=== PATIENT | male | born 1940 | race Caucasian/White ===

== ENCOUNTER → 2016-12-06 | Outpatient (CLI) | payer MEDICARE, BC ==
[~2016-12-06] VITALS: Ht 170.2 cm; Wt 108.7 kg
[~2016-12-06] MED LIST: AMOX500C PO; B-COINJ SQ/IV; CHOL50008 PO; COLE1TAB2 PO; FENO160T PO; INSULIN HUMAN REGULAR 1,000 UNITS/10 ML VIAL SQ PRN; LACTATED RINGER'S 1000 ML IV SCH; LEVO.05 PO; LEXA10TA PO; LOSA100T PO; MAGN250T10 PO; METH2.5T PO; METOPROLOL TARTRATE 25 MG TAB PO PRN; PROPOFOL 200 MG/20 ML AMP IV ONE; SODIUM CHLORID 0.9% 500 ML IV SCH; VEDO1INJ
[2016-12-06 11:14] VITALS: BP 152/84; PULSE 63; RESP 20; TEMP 97.7; O2SAT 96
[2016-12-06 13:23] VITALS: TEMP 97.6
[2016-12-06 13:41] VITALS: BP 139/60; PULSE 59; RESP 16; O2SAT 96
--- NOTE | 2016-12-06 19:32 | EKG ---
Date Performed: 12/06/2016 Time Performed: 11:07:39 PTAGE: 76 years EKG: Sinus rhythm NORMAL ECG PREVIOUS TRACING : 03/06/2013 09.35 Compared to prior tracing no significant change DOCTOR: Tania Rodriguez Interpretating Date/Time 12/06/2016 19:31:02
--- NOTE | 2016-12-12 18:47 | MR ---
cc: TWIN DAVIS HARRY MD 1940 DATE OF PROCEDURE 12/06/16 PROCEDURE Colonoscopy with biopsies. PERFORMED BY Dr. Ben Yap. The patient is an outpatient. INDICATIONS FOR PROCEDURE Crohn's disease. He has had this since 1993. He is status post ileocecal resection and he has had a colonic anastomosis as well. Symptoms are under control with a combination of Entyvio and methotrexate. He has been receiving Entyvio since the summer. He had inflammatory changes at the ileocolonic anastomosis with a polypoid lesion that was resected. This showed inflammation with dysplasia versus inflammatory atypia. He returns now for evaluation of this region and to see about dilating the anastomotic stricture. MEDICATIONS Sedation per anesthesiology INSTRUMENT Pentax video pediatric colonoscope. PROCEDURE IN DETAIL After obtaining written informed consent, the patient was placed in the left lateral decubitus position. Adequate sedation was administered. A digital rectal examination was performed. No gross lesions were noted. The colonoscope was placed into the anus and advanced through a colonic anastomosis that was widely patent at [address] the ileocolonic anastomosis. Anastomosis was rather stenotic and did not allow insertion of a pediatric colonoscope. There was erythema with some shallow ulcerations. No inflammatory nodules or polypoid lesions were identified. Because of the active inflammation, it was not felt safe to try to balloon dilate this region. Biopsies were obtained of the anastomotic stenosis. Upon withdrawal of the instrument, the mucosal surfaces were well-visualized. Mild to moderate craft diverticulosis was noted. No other abnormalities were detected. The instrument was retroflexed in the rectum and no lesions were noted. The instrument was withdrawn. The procedure was terminated. The patient tolerated it well and there were no apparent complications. Upon completion, he was sedated and had normal stable vital signs. IMPRESSION 1. Colonoscopy to the ileocolonic anastomosis which was again rather stenotic and inflamed with some shallow ulcers, but the overall appearance was much improved compared to the evaluation of June 2016. Biopsies were taken. 2. Mild to moderate craft diverticulosis. 3. Widely patent colocolonic anastomosis at 65 cm from the anus. DISPOSITION The patient is to be observed per routine postprocedure protocol. He may return home, resume his current regimen. We will contact him in several days with the histology reports. If there no concerning findings, we will repeat colonoscopy in one more year. MD IRA Guillen/ /1:27 PM /6:36 PM
== END ==
LOC: HEND 10:22
DX: K63.3 Ulcer of intestine (principal); K63.89 Other specified diseases of intestine; K57.30 Diverticulosis of large intestine without perforation or abscess without bleeding; K50.90 Crohn's disease, unspecified, without complications; Z90.49 Acquired absence of other specified parts of digestive tract; Z01.810 Encounter for preprocedural cardiovascular examination
CPT/HCPCS: 88305; 93005